=== PATIENT | female | born 2000 | race Caucasian/White ===

== ENCOUNTER 2025-03-22 11:32 | Emergency (ER) | payer MEDICAID ==
[~2025-03-22] VITALS: Ht 165.1 cm; Wt 56.8 kg
[~2025-03-22 11:32] MED LIST: SULF1TAB49 PO
[2025-03-22 11:36] VITALS: BP 93/63; PULSE 92; RESP 16; O2SAT 99
[2025-03-22] MEDS ORDERED: ONDA-243 PO (12:14)
[2025-03-22] MEDS ORDERED: DOXY-1 PO (12:14)
--- NOTE | 2025-03-22 12:14 | Physician Documentation ---
History of Present Illness ~ Chief Complaint: Eye Pain Stated Complaint: MEDICATION REACTION Time Seen by MD: 12:04 HPI 25-year-old female with a infection, abscess above her left eyebrow was seen in the emergency department and given Bactrim but she is not tolerating the antibiotic very well causing nausea and vomiting. Patient denies any significant changes to the lesion. Patient has a little scab on it and she states that it does. Patient is traveling home today diet hope. No other associated symptoms Medication Reconciliation Allergies: Coded Allergies: No Known Allergies (Unverified , 03/22/25) Scheduled Sulfamethoxazole/Trimethoprim (Bactrim Ds Tablet), 1 TAB PO Q12H Past Medical History Past Medical History: No Pertinent History Lives with: Family Lives In: Home Occupation: employed Review of Systems All Other Systems at this time: Reviewed and Negative ENT: Reports: see HPI Physical Exam Vital Signs: RN Vital Signs have been reviewed: Yes, Temperature: 98.2, Source: Temporal, Heart Rate: 92, Respiratory Rate: 16, BP: 93/63, Pulse Oximetry: 99, Weight: 56.820 Oxygen Flow Rate: 0 Physical Exam General: Alert, no apparent distress. HEENT: PERRL, EOMI, no injection, moist mucous membranes. Small fluctuant area 1-1/2 cm x 1 cm above left eyebrow with scabbed central area Neck: Full range of motion. Respiratory: Lungs clear, no respiratory distress. Chest: No accessory muscle use. Cardiovascular: Regular rate and rhythm, no murmurs. Extremities: Normal range of motion, no deformity. Neurologic: Oriented x4. Psychiatric: Normal mood and affect. Skin: Normal color, warm and dry. No edema, no ecchymosis. Progress Results/Orders Results/Orders Vital Signs 03/22/25 11:36 Temp 98.2 Pulse 92 Resp 16 B/P (MAP) 93/63 Pulse Ox 99 O2 Flow Rate 0 Medical Decision Making Findings Patient due to adverse reaction of the antibiotics is requesting Zofran new antibiotic due to draining abscess above left eyebrow she will go see her primary care went back in [place]. Departure Time of Disposition: 12:12 Disposition: 01 HOME / SELF CARE / HOMELESS Impression: Primary Impression: Facial cellulitis Condition: Stable Additional Instructions: Continue old antibiotic take new antibiotic as prescribed Zofran as needed for nausea vomiting follow up with primary care in [place]. Referrals: NO PRIMARY CARE PROVIDER (PCP) Prescriptions ONDANSETRON ODT 4mg tablet (ONDANSETRON ODT) 4 Mg Tab.rapdis 1 TABLET PO Q6H PRN for nausea/vomiting, #16 TABLET Prov: SARAH TAVERAS NP 03/22/25 Doxycycline Hyclate (Doxycycline Hyclate) 100 Mg Capsule 1 CAP PO Q12H for 7 Days, #14 CAP Prov: SARAH TAVERAS NP 03/22/25 Education Educated: Patient Educated regarding: diagnosis, treatment, need for follow up Signature Scribe Signature: No scribe Attestation: The note accurately reflects work and decisions made by me.Sarah Taveras - PRISCA 03/22/25 12:14 SARAH TAVERAS NP Mar 22, 2025 12:14
[2025-03-22 12:25] VITALS: TEMP 98.2
== END 2025-03-22 12:26 | disposition home or self-care (01) ==
LOC: ER 11:33
DX: L03.211 Cellulitis of face (principal); Z79.899 Other long term (current) drug therapy
CPT/HCPCS: 99283